=== PATIENT | female | born 1990 | race Caucasian/White ===

== ENCOUNTER 2016-08-07 11:32 | Emergency (ER) | payer OTHER ==
[~2016-08-07] VITALS: Ht 160 cm; Wt 52.1 kg
[~2016-08-07 11:32] MED LIST: ACYCLOVIR800 MG PO; BACTRIM,SEPT1 TABLET PO; DOCUSATE SODIU100 MG PO; ENDOCET 5-3251 EACH PO; FLONASE16 G1 BOTH NARES; IBUPROFEN800 MG PO; KEFLEX500 MG PO; MACROBID100 MG PO; MOTRIN600 MG PO; MUCUS ER600 MG PO; NAPROSYN250 MG PO; NAPROXEN500 MG PO; NO MEDS; NOHOMEMEDS; ONDANSETRON HCL4 MG PO; PERCOCET 5/31 TABLET PO; PRENATAL TABLE1 EAC3 PO; PRENATAL TABLE1 EACH PO; ROBITUSSIN NIG118 ML PO; SPRINTEC1 EACH PO; TAMSULOSIN HCL0.4 MG PO; TYLENOL REGULA325 MG PO; ULTRAM50 MG PO; ZANTAC150 MG PO; ZOFRAN ODT4 MG PO; ZYRTEC10 M2 PO
[2016-08-07 13:18] LABS: HEMATOCRIT 46.1 % (36.0-46.0); MCHC 29.9 G/DL (30.0-36.0); MCV 73.4 FL (83-99); MEAN PLAT.VOLUME 8.8 uM^3 (9.5-12.4); PLATELET COUNT 357 K/uL (156-360); RBC DIS.WIDTH-SD 50.1 % (39-53); RED BLOOD COUNT 6.28 M/uL (3.80-5.20); WHITE BLOOD COUNT 8.1 K/uL (4.1-10.2)
[2016-08-07 13:29] LABS: CHLORIDE 106 mEq/L (99-109); POTASSIUM 4.2 mEq/L (3.7-5.4); SODIUM 139 mEq/L (136-147)
[2016-08-07 13:30] LABS: ADD MIUA? YES; BILIRUBIN NEGATIVE; BLOOD NEGATIVE; COLOR YELLOW ((YELLOW)); GLUCOSE (STRIP) NEGATIVE; KETONES NEGATIVE; LEUKOCYTES LARGE; NITRITE NEGATIVE; PROTEIN (STRIP) 30; SPECIFIC GRAVITY 1.024 (1.000-1.030); UROBILINOGEN 0.2 MG/DL (0.2-1.0)
[2016-08-07 13:31] LABS: GLUCOSE 94 mg/dL (70-99)
[2016-08-07 13:32] LABS: ANION GAP 11 MEQ/L (2-14)
[2016-08-07 13:33] LABS: TOTAL BILIRUBIN 0.7 mg/dL (0.0-1.0)
[2016-08-07 13:35] LABS: ALKALINE PHOSPHATASE 50 IU/L (3-129); GFR ESTIMATE (CALCULATED) > 59 mL/min/
[2016-08-07 13:36] LABS: UREA NITROGEN (BUN) 19 mg/dL (9-23)
[2016-08-07 13:38] LABS: LIPASE 15 U/L (1.0-51.0)
[2016-08-07 13:45] LABS: QUANTITATIVE HCG < 4.0 MIU/ML
[2016-08-07 14:13] LABS: BACTERIA NONE SEEN /HPF; EPITHELIAL CELLS RARE /HPF; MUCUS 2+ /LPF; UCUL ADDED? YES; WHITE BLOOD CELLS TNTC /HPF (0-5)
[2016-08-07] MEDS ORDERED: BACTRIM,SEPT1 TABLET PO (14:31)
[2016-08-07] MEDS ORDERED: ZOFRAN ODT4 MG PO (14:31)
[2016-08-07 15:13] VITALS: BP 130/69
[2016-08-07] MEDS ORDERED: PERCOCET 5/31 TABLET PO (15:31)
== END 2016-08-07 15:40 | disposition home or self-care (01) ==
LOC: EME 11:32
DX: N39.0 Urinary tract infection, site not specified (principal); R11.2 Nausea with vomiting, unspecified; E86.0 Dehydration; R00.0 Tachycardia, unspecified; Z87.442 Personal history of urinary calculi
CPT/HCPCS: 80053; 81003; 83690; 84702; 85027; 87086; 99281; 99284; J1885; J2405; J7030

== ENCOUNTER 2016-09-23 10:39 | Emergency (ER) | payer OTHER ==
[~2016-09-23] VITALS: Ht 160 cm; Wt 52.5 kg
[2016-09-23] MEDS ORDERED: CATAPRES0.1 MG PO (11:23)
[2016-09-23] MEDS ORDERED: TRAZODONE HCL50 MG PO (11:23)
[2016-09-23] MEDS ORDERED: ZOFRAN ODT4 MG PO (11:25)
[2016-09-23 11:37] VITALS: BP 145/121
== END 2016-09-23 11:38 | disposition home or self-care (01) ==
LOC: EME 10:39
DX: R51 Headache (principal); R11.0 Nausea; T40.2X6A Underdosing of other opioids, initial encounter; N20.0 Calculus of kidney; Z79.891 Long term (current) use of opiate analgesic; Z87.891 Personal history of nicotine dependence; Z91.14 Patient's other noncompliance with medication regimen
CPT/HCPCS: 99281; 99284

== ENCOUNTER 2016-12-08 13:35 | Emergency (ER) | payer OTHER ==
[~2016-12-08] VITALS: Ht 160 cm; Wt 52.4 kg
[~2016-12-08 13:35] MED LIST changes: +CATAPRES0.1 MG PO; +TRAZODONE HCL50 MG PO
[2016-12-08] MEDS ORDERED: FLEXERIL5 MG PO (14:52)
[2016-12-08] MEDS ORDERED: NAPROSYN500 MG PO (14:52)
[2016-12-08 14:55] VITALS: BP 135/83
== END 2016-12-08 14:55 | disposition home or self-care (01) ==
LOC: EME 13:35
DX: S46.912A Strain of unspecified muscle, fascia and tendon at shoulder and upper arm level, left arm, initial encounter (principal); X58.XXXA Exposure to other specified factors, initial encounter
CPT/HCPCS: 73030; 99281; 99283

== ENCOUNTER 2017-02-16 07:41 | Emergency (ER) | payer OTHER ==
[~2017-02-16] VITALS: Ht 160 cm; Wt 52.3 kg
[~2017-02-16 07:41] MED LIST changes: +FLEXERIL5 MG PO; +NAPROSYN500 MG PO
[2017-02-16 08:20] LABS: ADD MIUA? YES; BILIRUBIN NEGATIVE; BLOOD NEGATIVE; COLOR YELLOW ((YELLOW)); GLUCOSE (STRIP) NEGATIVE; KETONES 5; LEUKOCYTES MODERATE; NITRITE NEGATIVE; PROTEIN (STRIP) NEGATIVE; SPECIFIC GRAVITY 1.016 (1.000-1.030); UROBILINOGEN 0.2 MG/DL (0.2-1.0)
[2017-02-16 08:26] LABS: BACTERIA 1+ /HPF; CALCIUM OXALATE CRYSTALS 3+ /HPF; EPITHELIAL CELLS RARE /HPF; MUCUS TRACE /LPF; RED BLOOD CELLS 0-5 /HPF (0-5); UCUL ADDED? NO; UNCLASSIFIED CRYSTALS 1+ /HPF; WHITE BLOOD CELLS 0-5 /HPF (0-5)
[2017-02-16 08:54] LABS: INFLUENZA A VIRAL ANTIGEN NEGATIVE; INFLUENZA B VIRAL ANTIGEN NEGATIVE
[2017-02-16] MEDS ORDERED: TESSALON200 MG PO (09:23)
[2017-02-16 10:05] VITALS: BP 142/85
== END 2017-02-16 10:07 | disposition home or self-care (01) ==
LOC: EME 07:41
PROVIDERS: Nurse Practitioner Family
DX: J06.9 Acute upper respiratory infection, unspecified (principal)
CPT/HCPCS: 71020; 81003; 87086; 87502; 87651 90; 99281; 99284; J1885

== ENCOUNTER 2017-06-15 10:55 | Outpatient (CLI) | payer OTHER ==
[~2017-06-15 10:55] MED LIST changes: +TESSALON200 MG PO
[2017-06-15 11:14] VITALS: BP 96/55
== END 2017-06-15 14:02 | disposition home or self-care (01) ==
LOC: LDRP-OP 10:55 → 2WEST 10:56 → LDRP-OP 10-03 12:04
DX: O26.893 Other specified pregnancy related conditions, third trimester (principal); R10.30 Lower abdominal pain, unspecified; O26.833 Pregnancy related renal disease, third trimester; N26.1 Atrophy of kidney (terminal); Z3A.28 28 weeks gestation of pregnancy
CPT/HCPCS: 59025; 81003; 87086; G0378

== ENCOUNTER 2017-07-07 12:11 | Outpatient (CLI) | payer OTHER ==
[~2017-07-07] VITALS: Ht 160 cm; Wt 61.0 kg
[2017-07-07 12:40] VITALS: BP 117/69
[2017-07-07 13:05] LABS: BASOPHIL (%) 0.2 % (0-1); EOSINOPHIL (%) 0.2 % (0-5); HEMATOCRIT 31.1 % (36.0-46.0); HEMOGLOBIN 10.5 G/DL (11.9-15.5); LYMPHOCYTE COUNT 1.5 K/uL (1.0-2.8); MCH 27.9 PG (29.0-34.0); MCHC 33.8 G/DL (30.0-36.0); MCV 82.5 FL (83-99); MONOCYTE (%) 7.7 % (3-12); MONOCYTE COUNT 0.9 K/uL (0-0.8); NEUTROPHIL (%) 76.9 % (45-76); NEUTROPHIL COUNT 8.7 K/uL (1.8-6.4); PLATELET COUNT 170 K/uL (156-360); RBC DIS.WIDTH-CV 13.3 % (11.8-14.6); RBC DIS.WIDTH-SD 40.2 % (39-53); RED BLOOD COUNT 3.77 M/uL (3.80-5.20); WHITE BLOOD COUNT 11.2 K/uL (4.1-10.2)
[2017-07-07 13:51] LABS: BILIRUBIN NEGATIVE; BLOOD NEGATIVE; COLOR YELLOW ((YELLOW)); GLUCOSE (STRIP) NEGATIVE; KETONES NEGATIVE; LEUKOCYTES TRACE; NITRITE NEGATIVE; PROTEIN (STRIP) NEGATIVE; SPECIFIC GRAVITY 1.015 (1.000-1.030)
[2017-07-07 13:52] LABS: APPEARANCE SL.HAZY ((CLEAR))
[2017-07-07 13:55] LABS: BACTERIA RARE /HPF; EPITHELIAL CELLS 1+ /HPF; HYALINE CASTS 0-5 /LPF; MUCUS TRACE /LPF; RED BLOOD CELLS 0-5 /HPF (0-5); UCUL ADDED? YES
[2017-07-07 14:13] VITALS: BP 105/56
[2017-07-07 14:22] LABS: GROUP B STREP NEGATIVE (NEGATIVE)
[2017-07-07 14:29] LABS: BENZODIAZEPINES, URINE SCREEN Negative (200 ng/mL)
[2017-07-07 14:54] VITALS: BP 110/67
== END 2017-07-07 15:10 | disposition short-term general hospital (02) ==
LOC: LDRP-OP 12:11 → 2WEST 12:13 → LDRP-OP 10-03 02:05
PROVIDERS: Obstetrics & Gynecology
DX: O60.03 Preterm labor without delivery, third trimester (principal); Z3A.31 31 weeks gestation of pregnancy; Z82.49 Family history of ischemic heart disease and other diseases of the circulatory system; Z87.442 Personal history of urinary calculi
CPT/HCPCS: 59025; 76805; 76810; 80306 90; 81003; 85025; 87086; 87653; G0378; J0702; J2540; J3475; J7120

== ENCOUNTER 2017-08-14 11:10 | Outpatient (CLI) | payer OTHER ==
[2017-08-14 11:42] VITALS: BP 127/58
== END 2017-08-14 14:55 | disposition home or self-care (01) ==
LOC: LDRP-OP 11:10 → 2WEST 11:11 → LDRP-OP 09-03 19:24
DX: O47.1 False labor at or after 37 completed weeks of gestation (principal); Z3A.00 Weeks of gestation of pregnancy not specified
CPT/HCPCS: 59025; G0378

== ENCOUNTER 2017-08-18 06:36 | Inpatient (IN) | payer OTHER ==
[~2017-08-18] VITALS: Ht 160 cm; Wt 60.3 kg
[2017-08-18] VITALS (9 sets, daily range): BP systolic 105–126; BP diastolic 55–76
[2017-08-18 07:38] LABS: BASOPHIL (%) 0.2 % (0-1); EOSINOPHIL (%) 0.3 % (0-5); HEMATOCRIT 30.5 % (36.0-46.0); HEMOGLOBIN 9.8 G/DL (11.9-15.5); IMMATURE GRANULOCYTE (%) 1.2 % (0.0-0.7); LYMPHOCYTE (%) 15.4 % (15-42); LYMPHOCYTE COUNT 1.7 K/uL (1.0-2.8); MCH 25.3 PG (29.0-34.0); MCHC 32.1 G/DL (30.0-36.0); MCV 78.6 FL (83-99); MONOCYTE (%) 7.9 % (3-12); MONOCYTE COUNT 0.9 K/uL (0-0.8); NEUTROPHIL COUNT 8.4 K/uL (1.8-6.4); NRBC (%) 0.2 /100 WBC (0-0); PLATELET COUNT 170 K/uL (156-360); RBC DIS.WIDTH-CV 14.6 % (11.8-14.6); RBC DIS.WIDTH-SD 41.4 % (39-53); RED BLOOD COUNT 3.88 M/uL (3.80-5.20); WHITE BLOOD COUNT 11.1 K/uL (4.1-10.2)
[2017-08-18 10:14] LABS: AMPHETAMINE NEGATIVE (500 ng/mL); BARBITURATES NEGATIVE (200 ng/mL); BENZODIAZEPINES NEGATIVE (150 ng/mL); BUPRENORPHINE NEGATIVE (10 ng/mL); COCAINE NEGATIVE (150 ng/mL); METHADONE NEGATIVE (200 ng/mL); METHAMPHETAMINE NEGATIVE (500 ng/mL); OPIATES (MORPHINE) PRESUMPTIVE POSITIVE (100 ng/mL); OXYCODONE NEGATIVE (100 ng/mL); PHENCYCLIDINE NEGATIVE (25 ng/mL); PROPOXYPHENE NEGATIVE (300 ng/mL); THC CANNABINOIDS NEGATIVE (50 ng/mL); TRICYCLIC ANTIDEPRESSANTS NEGATIVE (300 ng/mL)
[2017-08-19 07:13] LABS: BASOPHIL (%) 0.2 % (0-1); EOSINOPHIL (%) 0.3 % (0-5); HEMOGLOBIN 8.8 G/DL (11.9-15.5); IMMATURE GRANULOCYTE (%) 1.1 % (0.0-0.7); LYMPHOCYTE (%) 21.2 % (15-42); LYMPHOCYTE COUNT 2.6 K/uL (1.0-2.8); MCH 24.9 PG (29.0-34.0); MCHC 31.4 G/DL (30.0-36.0); MCV 79.3 FL (83-99); MONOCYTE (%) 7.5 % (3-12); MONOCYTE COUNT 0.9 K/uL (0-0.8); NEUTROPHIL (%) 69.7 % (45-76); NEUTROPHIL COUNT 8.6 K/uL (1.8-6.4); PLATELET COUNT 157 K/uL (156-360); RBC DIS.WIDTH-CV 14.7 % (11.8-14.6); RBC DIS.WIDTH-SD 42.5 % (39-53); RED BLOOD COUNT 3.53 M/uL (3.80-5.20); WHITE BLOOD COUNT 12.3 K/uL (4.1-10.2)
[2017-08-19 07:30] VITALS: BP 103/62
[2017-08-19 15:00] VITALS: BP 106/55
[2017-08-19] MEDS ORDERED: IBUPROFEN800 MG PO (17:55)
[2017-08-19] MEDS ORDERED: HEMOCYTE324 MG PO (17:56)
[2017-08-19] MEDS ORDERED: CAMILA0.35 MG PO (18:22)
== END 2017-08-19 20:19 | disposition home or self-care (01) | DRG 775 ==
LOC: LDRP-OP 06:36 → 2WEST 06:37 → LDRP-OP 10-03 02:43
PROVIDERS: Advanced Practice Midwife
PROC: 10E0XZZ Delivery of Products of Conception, External Approach (ICD-10-PCS; principal; 2017-08-18)
PROC: 3E0R3BZ Introduction of Anesthetic Agent into Spinal Canal, Percutaneous Approach (ICD-10-PCS; principal; 2017-08-18)
PROC: 00HU33Z Insertion of Infusion Device into Spinal Canal, Percutaneous Approach (ICD-10-PCS; principal; 2017-08-18)
DX: O62.3 Precipitate labor (principal); D62 Acute posthemorrhagic anemia; O99.02 Anemia complicating childbirth; Z3A.37 37 weeks gestation of pregnancy; Z37.0 Single live birth
CPT/HCPCS: 84999; 85025; C1755; J7120

== ENCOUNTER 2017-12-02 13:50 | Emergency (ER) | payer OTHER ==
[~2017-12-02] VITALS: Ht 160 cm; Wt 52.2 kg
[~2017-12-02 13:50] MED LIST changes: +CAMILA0.35 MG PO; +HEMOCYTE324 MG PO
[2017-12-02 14:42] LABS: HEMATOCRIT 43.5 % (36.0-46.0); HEMOGLOBIN 14.2 G/DL (11.9-15.5); MCH 25.7 PG (29.0-34.0); MCHC 32.6 G/DL (30.0-36.0); MCV 78.8 FL (83-99); PLATELET COUNT 325 K/uL (156-360); RBC DIS.WIDTH-CV 16.9 % (11.8-14.6); RBC DIS.WIDTH-SD 47.9 % (39-53); RED BLOOD COUNT 5.52 M/uL (3.80-5.20)
[2017-12-02 14:55] LABS: CHLORIDE 108 mEq/L (99-109); POTASSIUM 4.9 mEq/L (3.7-5.4); SODIUM 143 mEq/L (136-147)
[2017-12-02 14:57] LABS: GLUCOSE 91 mg/dL (70-99); TOTAL PROTEIN 8.3 g/dL (6.4-8.3)
[2017-12-02 14:59] LABS: TOTAL BILIRUBIN 0.8 mg/dL (0.0-1.0)
[2017-12-02 15:01] LABS: ALKALINE PHOSPHATASE 78 IU/L (3-129); GFR ESTIMATE (CALCULATED) > 59 mL/min/
[2017-12-02 15:02] LABS: UREA NITROGEN (BUN) 21 mg/dL (9-23)
[2017-12-02 15:03] LABS: AST (GOT) 29 IU/L (2-34)
[2017-12-02 15:04] LABS: ALT (GPT) 27 IU/L (3-49)
[2017-12-02 15:12] LABS: QUANTITATIVE HCG < 4.0 MIU/ML
[2017-12-02 15:28] LABS: APPEARANCE CLEAR ((CLEAR)); BILIRUBIN NEGATIVE; BLOOD NEGATIVE; COLOR YELLOW ((YELLOW)); GLUCOSE (STRIP) NEGATIVE; KETONES NEGATIVE; LEUKOCYTES SMALL; NITRITE NEGATIVE; PROTEIN (STRIP) NEGATIVE; SPECIFIC GRAVITY 1.019 (1.000-1.030); UROBILINOGEN 0.2 MG/DL (0.2-1.0)
[2017-12-02 15:34] LABS: BACTERIA RARE /HPF; EPITHELIAL CELLS RARE /HPF; MUCUS TRACE /LPF; RED BLOOD CELLS 0-5 /HPF (0-5); UCUL ADDED? NO; WHITE BLOOD CELLS 0-5 /HPF (0-5)
[2017-12-02] MEDS ORDERED: TORADOL10 MG PO (16:32)
[2017-12-02] MEDS ORDERED: ZOFRAN ODT4 MG PO (16:32)
[2017-12-02] MEDS ORDERED: OXAYDO5 MG PO (16:40)
[2017-12-02 16:43] VITALS: BP 118/86
== END 2017-12-02 16:44 | disposition home or self-care (01) ==
LOC: EME 13:50
DX: R10.9 Unspecified abdominal pain (principal); R11.0 Nausea; Q61.5 Medullary cystic kidney; J45.909 Unspecified asthma, uncomplicated; Z87.442 Personal history of urinary calculi
CPT/HCPCS: 74176; 80053; 81003; 84702; 85027; 99281; 99284; J1885